=== PATIENT | male | born 1985 | race Two or more races ===

== ENCOUNTER 2019-08-02 15:34 | Emergency (ER) | payer OTHER ==
[~2019-08-02] VITALS: Ht 170.2 cm; Wt 77.3 kg
[2019-08-02 16:07] VITALS: BP 141/82
[2019-08-02] MEDS ORDERED: HYDROCODONE/ACETAMINOPHEN 5-325 MG TABLET PO ONE (17:30)
== END 2019-08-02 17:54 | disposition home or self-care (01) ==
LOC: EMS 15:34
DX: S20.212A Contusion of left front wall of thorax, initial encounter (principal); F19.90 Other psychoactive substance use, unspecified, uncomplicated; W19.XXXA Unspecified fall, initial encounter; Y93.89 Activity, other specified; Y92.89 Other specified places as the place of occurrence of the external cause; Y99.8 Other external cause status